=== PATIENT | male | born 1990 | race Caucasian/White ===

== ENCOUNTER 2016-09-29 09:26 | Emergency (ER) | payer SELFPAY ==
[~2016-09-29] VITALS: Ht 190.5 cm; Wt 63.5 kg
[~2016-09-29 09:26] MED LIST: CLINDAMYCIN300 MG PO; IBU800 M1 PO; KEFLEX500 M1 PO; LIDEX 0.05% CRE15 GM T; Lotrimin 1%15 GM T; MOTRIN800 MG PO; Motrin,Rufen800 MG PO; PEN-VEE K500 MG PO; PHENERGAN25 M1 PO; PREDNICOT20 MG PO; PREDNISONE20 M1 PO; PRILOSEC20 MG PO; VICO10300 PO; VOLTAREN50 M1 PO; Zofran4 MG PO
[2016-09-29] MEDS ORDERED: Motrin,Rufen800 MG PO (09:40)
[2016-09-29] MEDS ORDERED: AUGMENTIN 875875 MG PO (09:40)
== END 2016-09-29 09:51 | disposition home or self-care (01) ==
LOC: ED 09:26
DX: K08.89 Other specified disorders of teeth and supporting structures (principal); F17.200 Nicotine dependence, unspecified, uncomplicated